=== PATIENT | female | born 1960 | race Caucasian/White ===

== ENCOUNTER 2023-04-28 00:03 | Emergency (ER) | payer BC ==
[2023-04-28] MEDS: Codeine/guaiFENesin 10-100 MG/5 ML Syrup 5 ML Cup PO ONE ×2 (00:39→02:07)
[2023-04-28 00:49] LABS: BASOPHILS ABSOLUTE AUTO 0.08 10^3/uL (0.00-0.10); BASOPHILS PERCENT AUTO 0.9 % (0.0-1.0); EOSINOPHILS ABSOLUTE AUTO 0.42 10^3/uL (0.10-0.30); EOSINOPHILS PERCENT AUTO 4.6 % (1.0-3.0); HEMATOCRIT 43.2 % (37.0-47.0); HEMOGLOBIN 14.6 g/dL (12.0-16.0); IMMATURE GRAN ABSOLUTE AUTO 0.01 10^3/uL (0.00-0.50); IMMATURE GRAN PERCENT AUTO 0.1 % (0.0-5.0); LYMPHOCYTES ABSOLUTE AUTO 1.28 10^3/uL (1.00-4.00); LYMPHOCYTES PERCENT AUTO 14.1 % (20.0-40.0); MEAN CORPUSCULAR HEMOGLOBIN 31.2 pg (27.0-31.0); MEAN CORPUSCULAR HGB CONC 33.8 g/dL (32.0-36.0); MEAN CORPUSCULAR VOLUME 92.3 fL (82.0-92.0); MONOCYTES ABSOLUTE AUTO 1.33 10^3/uL (0.10-0.80); MONOCYTES PERCENT AUTO 14.7 % (2.0-8.0); NEUTROPHILS ABSOLUTE AUTO 5.94 10^3/uL (2.50-7.00); NEUTROPHILS PERCENT AUTO 65.6 % (50.0-70.0); PLATELET COUNT,PLT 265 10^3/uL (150-400); RED BLOOD CELL COUNT 4.68 10^6/uL (3.80-5.50); RED CELL DISTRIBUTION WIDTH 12.6 % (11.5-14.5); WHITE BLOOD CELL COUNT,WBC 9.06 10^3/uL (5.00-10.00)
[2023-04-28] MEDS: Albuterol/Ipratropium 3.0-0.5 MG/3 ML Neb Soln NEB ONE ×2 (00:51→02:08)
[2023-04-28 01:08] LABS: ALBUMIN 3.85 g/dL (3.40-5.00); ANION GAP 16.5 mmol/L (5-15); BILIRUBIN TOTAL 0.5 mg/dL (0.2-1.0); CALCIUM 9.2 mg/dL (8.7-10.3); CARBON DIOXIDE,CO2 26.6 mmol/L (21.0-32.0); CREATININE 0.69 mg/dL (0.51-1.17); EST CRCL DRUG DOSING (CG) 75.09 mL/min; POTASSIUM,K 4.1 mmol/L (3.5-5.1); PROTEIN TOTAL,TP 8.3 g/dL (6.4-8.2)
[2023-04-28 01:18] LABS: INFLUENZA A NAA NEGATIVE (NEGATIVE); INFLUENZA B NAA NEGATIVE (NEGATIVE); RESPIRATORY SYNCYTIAL VIR NAA POSITIVE (NEGATIVE)
[2023-04-28 01:20] LABS: CORONAVIRUS COVID-19 NAA NEGATIVE (NEGATIVE)
[2023-04-28] MEDS: predniSONE 10 MG Tab PO ONE (02:06)
[2023-04-28] MEDS: predniSONE 20 MG Tab PO ONE (02:06)
== END 2023-04-28 02:10 | disposition home or self-care (01) ==
LOC: KA.ED 00:03
DX: J21.0 Acute bronchiolitis due to respiratory syncytial virus (principal); R05.1 Acute cough; G47.01 Insomnia due to medical condition; Z79.899 Other long term (current) drug therapy; Z88.5 Allergy status to narcotic agent; Z88.6 Allergy status to analgesic agent; Z88.7 Allergy status to serum and vaccine; Z88.8 Allergy status to other drugs, medicaments and biological substances; Z91.013 Allergy to seafood; Z88.0 Allergy status to penicillin
CPT/HCPCS: 0241U; 36415; 71046; 80053; 85025; 94640; 99284; A9270-GY; J7512; J7620-GY

== ENCOUNTER 2023-04-30 13:07 | Inpatient (IN) | payer BC ==
[2023-04-30 13:48] LABS: BASOPHILS ABSOLUTE AUTO 0.06 10^3/uL (0.00-0.10); BASOPHILS PERCENT AUTO 0.6 % (0.0-1.0); EOSINOPHILS ABSOLUTE AUTO 0.26 10^3/uL (0.10-0.30); EOSINOPHILS PERCENT AUTO 2.8 % (1.0-3.0); HEMATOCRIT 42.1 % (37.0-47.0); HEMOGLOBIN 13.9 g/dL (12.0-16.0); IMMATURE GRAN ABSOLUTE AUTO 0.02 10^3/uL (0.00-0.50); IMMATURE GRAN PERCENT AUTO 0.2 % (0.0-5.0); LYMPHOCYTES ABSOLUTE AUTO 1.85 10^3/uL (1.00-4.00); LYMPHOCYTES PERCENT AUTO 19.7 % (20.0-40.0); MEAN CORPUSCULAR HEMOGLOBIN 31.1 pg (27.0-31.0); MEAN CORPUSCULAR VOLUME 94.2 fL (82.0-92.0); MEAN PLATELET VOLUME 10.2 fL (7.4-10.4); MONOCYTES ABSOLUTE AUTO 0.94 10^3/uL (0.10-0.80); NEUTROPHILS ABSOLUTE AUTO 6.24 10^3/uL (2.50-7.00); NEUTROPHILS PERCENT AUTO 66.7 % (50.0-70.0); PLATELET COUNT,PLT 274 10^3/uL (150-400); RED BLOOD CELL COUNT 4.47 10^6/uL (3.80-5.50); RED CELL DISTRIBUTION WIDTH 12.9 % (11.5-14.5); WHITE BLOOD CELL COUNT,WBC 9.37 10^3/uL (5.00-10.00)
[2023-04-30] MEDS: Sodium Chloride 0.9% 1,000 ML IV ONE (13:50)
[2023-04-30 14:05] LABS: ALBUMIN 3.6 g/dL (3.40-5.00); ANION GAP 15.7 mmol/L (5-15); BILIRUBIN TOTAL 0.3 mg/dL (0.2-1.0); CALCIUM 8.9 mg/dL (8.7-10.3); CARBON DIOXIDE,CO2 26.1 mmol/L (21.0-32.0); CREATININE 0.67 mg/dL (0.51-1.17); EST CRCL DRUG DOSING (CG) 77.33 mL/min; POTASSIUM,K 3.8 mmol/L (3.5-5.1); PROTEIN TOTAL,TP 7.9 g/dL (6.4-8.2)
[2023-04-30] MEDS ORDERED: Ondansetron 4 MG/2 ML SDV IV PRN (17:04)
[2023-04-30] MEDS ORDERED: Sodium Chloride 0.9% 10 ML Syringe FLUSH PRN (17:04)
[2023-04-30] MEDS ORDERED: Acetaminophen 325 MG Tab PO PRN (17:04)
[2023-04-30] MEDS ORDERED: Polyethylene Glycol 3350 Powder 17 GM Packet PO PRN (17:04)
[2023-04-30] MEDS: cefTRIAXone 2 GM Vial IVPUSH ONE (17:50)
[2023-04-30] MEDS: Azithromycin 500 MG in Sodium Chloride 0.9% 250 ML IV ONE (17:50)
[2023-04-30] MEDS: cefTRIAXone 1 GM Vial IVPUSH SCH (17:56)
[2023-04-30] MEDS: Furosemide 40 MG/4 ML VIAL IVPUSH SCH (18:26)
[2023-04-30] MEDS: Enoxaparin 40 MG/0.4 ML Syringe SUBCUT SCH (18:26)
[2023-04-30] MEDS: Albuterol/Ipratropium 3.0-0.5 MG/3 ML Neb Soln NEB PRN (19:51)
[2023-04-30] MEDS: Melatonin 3 MG Tab PO PRN (22:38)
[2023-04-30] MEDS: Codeine/guaiFENesin 10-100 MG/5 ML Syrup 5 ML Cup PO PRN (22:38)
[2023-05-01 07:46] LABS: BASOPHILS ABSOLUTE AUTO 0.06 10^3/uL (0.00-0.10); BASOPHILS PERCENT AUTO 0.8 % (0.0-1.0); EOSINOPHILS ABSOLUTE AUTO 0.46 10^3/uL (0.10-0.30); EOSINOPHILS PERCENT AUTO 6.3 % (1.0-3.0); HEMATOCRIT 40.2 % (37.0-47.0); IMMATURE GRAN ABSOLUTE AUTO 0.01 10^3/uL (0.00-0.50); IMMATURE GRAN PERCENT AUTO 0.1 % (0.0-5.0); LYMPHOCYTES ABSOLUTE AUTO 1.98 10^3/uL (1.00-4.00); LYMPHOCYTES PERCENT AUTO 27.1 % (20.0-40.0); MEAN CORPUSCULAR HEMOGLOBIN 30.6 pg (27.0-31.0); MEAN CORPUSCULAR HGB CONC 32.3 g/dL (32.0-36.0); MEAN CORPUSCULAR VOLUME 94.6 fL (82.0-92.0); MEAN PLATELET VOLUME 10.3 fL (7.4-10.4); MONOCYTES ABSOLUTE AUTO 0.71 10^3/uL (0.10-0.80); MONOCYTES PERCENT AUTO 9.7 % (2.0-8.0); NEUTROPHILS ABSOLUTE AUTO 4.08 10^3/uL (2.50-7.00); PLATELET COUNT,PLT 263 10^3/uL (150-400); RED BLOOD CELL COUNT 4.25 10^6/uL (3.80-5.50); RED CELL DISTRIBUTION WIDTH 12.9 % (11.5-14.5)
[2023-05-01 08:13] LABS: ANION GAP 13.4 mmol/L (5-15); CALCIUM 8.8 mg/dL (8.7-10.3); CARBON DIOXIDE,CO2 27.3 mmol/L (21.0-32.0); CREATININE 0.74 mg/dL (0.51-1.17); EST CRCL DRUG DOSING (CG) 70.02 mL/min; MAGNESIUM 2.3 mg/dL (1.8-2.4); POTASSIUM,K 3.7 mmol/L (3.5-5.1)
[2023-05-01] MEDS ORDERED: Ondansetron 4 MG Tab.DIS PO PRN (17:49)
[2023-05-01] MEDS: Azithromycin 500 MG in Sodium Chloride 0.9% 250 ML IV SCH (20:50)
[2023-05-01] MEDS: cefTRIAXone 1 GM Vial IVPUSH SCH (20:51)
[2023-05-01] MEDS: guaiFENesin 600 MG Tab.ER PO SCH (22:02)
[2023-05-01] MEDS: methylPREDNISolone Sodium Succinate 40 MG/1 ML SDV IVPUSH ONE (23:09)
[2023-05-01] MEDS: Sodium Chloride 0.9% 50 ML IV SCH (23:10)
[2023-05-01] MEDS: Levofloxacin/Dextrose 5%-Water 750 MG in Premix Bag 1 BAG IV SCH (23:10)
[2023-05-02 07:34] LABS: BASOPHILS ABSOLUTE AUTO 0.02 10^3/uL (0.00-0.10); BASOPHILS PERCENT AUTO 0.3 % (0.0-1.0); HEMATOCRIT 41.5 % (37.0-47.0); HEMOGLOBIN 13.8 g/dL (12.0-16.0); IMMATURE GRAN ABSOLUTE AUTO 0.02 10^3/uL (0.00-0.50); IMMATURE GRAN PERCENT AUTO 0.3 % (0.0-5.0); LYMPHOCYTES ABSOLUTE AUTO 0.85 10^3/uL (1.00-4.00); LYMPHOCYTES PERCENT AUTO 10.8 % (20.0-40.0); MEAN CORPUSCULAR HEMOGLOBIN 30.9 pg (27.0-31.0); MEAN CORPUSCULAR HGB CONC 33.3 g/dL (32.0-36.0); MEAN CORPUSCULAR VOLUME 92.8 fL (82.0-92.0); MEAN PLATELET VOLUME 10.1 fL (7.4-10.4); MONOCYTES ABSOLUTE AUTO 0.06 10^3/uL (0.10-0.80); MONOCYTES PERCENT AUTO 0.8 % (2.0-8.0); NEUTROPHILS ABSOLUTE AUTO 6.89 10^3/uL (2.50-7.00); NEUTROPHILS PERCENT AUTO 87.8 % (50.0-70.0); PLATELET COUNT,PLT 292 10^3/uL (150-400); RED BLOOD CELL COUNT 4.47 10^6/uL (3.80-5.50); RED CELL DISTRIBUTION WIDTH 12.6 % (11.5-14.5); WHITE BLOOD CELL COUNT,WBC 7.84 10^3/uL (5.00-10.00)
[2023-05-02 07:51] LABS: HEMOGLOBIN A1C 6.7 % (4.3-5.7)
[2023-05-02 08:03] LABS: ANION GAP 14.6 mmol/L (5-15); CALCIUM 9.1 mg/dL (8.7-10.3); CARBON DIOXIDE,CO2 26.5 mmol/L (21.0-32.0); CREATININE 0.59 mg/dL (0.51-1.17); EST CRCL DRUG DOSING (CG) 87.82 mL/min; MAGNESIUM 2.2 mg/dL (1.8-2.4); POTASSIUM,K 4.1 mmol/L (3.5-5.1); TSH ULTRASENSITIVE 0.34 uIU/mL (0.340-4.820)
[2023-05-03] MEDS: Loratadine 10 MG Tab PO SCH (12:15)
[2023-05-03] MEDS: Fluticasone NASAL Spray 16 GM Bottle NASBOTH SCH (12:15)
[2023-05-03] MEDS: Furosemide 40 MG/4 ML VIAL IVPUSH ONE (12:58)
[2023-05-04] MEDS: methylPREDNISolone Sodium Succinate 40 MG/1 ML SDV IV SCH (11:22)
[2023-05-05] MEDS: Furosemide 40 MG/4 ML VIAL IVPUSH ONE (15:53)
== END 2023-05-05 17:35 | DRG 138 ==
LOC: KA.ED 13:07 → KA.MS 16:48
PROVIDERS: ADMIT Family Medicine; ATTEND Internal Medicine
DX: J12.1 Respiratory syncytial virus pneumonia (principal); J96.01 Acute respiratory failure with hypoxia; E66.9 Obesity, unspecified; J21.0 Acute bronchiolitis due to respiratory syncytial virus; R91.8 Other nonspecific abnormal finding of lung field; J45.909 Unspecified asthma, uncomplicated; E03.9 Hypothyroidism, unspecified; Z88.0 Allergy status to penicillin; Z91.013 Allergy to seafood; Z88.8 Allergy status to other drugs, medicaments and biological substances; Z86.16 Personal history of COVID-19; Z68.32 Body mass index [BMI] 32.0-32.9, adult; Z79.890 Hormone replacement therapy; Z90.89 Acquired absence of other organs; Z99.81 Dependence on supplemental oxygen
CPT/HCPCS: 36415; 71045; 71046; 71250; 80048; 80053; 80061; 83036; 83605; 83735; 84145; 84443; 85025; 87040; 94640; 97162-GP; 99284; 99285; A9270-GY; J0456; J0696; J1650; J1940; J1956; J2920; J3490; J7030; J7050; J7620-GY; Q3014

== ENCOUNTER 2024-08-02 15:18 | Observation (INO) | payer MEDICARE ==
[2024-08-02] MEDS ORDERED: Acetaminophen 325 MG Tab PO PRN (16:17)
[2024-08-02] MEDS ORDERED: Ondansetron 4 MG Tab.DIS PO PRN (16:17)
[2024-08-02] MEDS ORDERED: Albuterol/Ipratropium 3.0-0.5 MG/3 ML Neb Soln NEB PRN (16:17)
[2024-08-02] MEDS ORDERED: [UNRECOGNIZED DRUG - OTHER] PO PRN (16:23)
[2024-08-02] MEDS ORDERED: DEXTROMETHORPHAN PO PRN (16:23)
[2024-08-02] MEDS ORDERED: PROMETHAZINE PO PRN (16:23)
[2024-08-02] MEDS ORDERED: guaiFENesin/Dextromethorphan 100-10 MG/5 ML Soln 5 ML Cup PO PRN (17:01)
[2024-08-02 17:10] LABS: HEMATOCRIT 41.8 % (37.0-47.0); HEMOGLOBIN 14.2 g/dL (12.0-16.0); MEAN CORPUSCULAR HEMOGLOBIN 31.3 pg (27.0-31.0); MEAN CORPUSCULAR VOLUME 92.1 fL (82.0-92.0); MEAN PLATELET VOLUME 10.4 fL (7.4-10.4); PLATELET COUNT,PLT 294 10^3/uL (150-400); RED BLOOD CELL COUNT 4.54 10^6/uL (3.80-5.50); RED CELL DISTRIBUTION WIDTH 12.6 % (11.5-14.5); WHITE BLOOD CELL COUNT,WBC 8.96 10^3/uL (5.00-10.00)
[2024-08-02] MEDS: Albuterol/Ipratropium 3.0-0.5 MG/3 ML Neb Soln NEB SCH (17:12)
[2024-08-02] MEDS: Loratadine 10 MG Tab PO SCH (17:12)
[2024-08-02] MEDS: cefTRIAXone 1 GM Vial IVPUSH SCH (17:13)
[2024-08-02] MEDS: Azithromycin 500 MG in Sodium Chloride 0.9% 250 ML IV SCH (17:13)
[2024-08-02 17:25] LABS: ALBUMIN 3.64 g/dL (3.40-5.00); BILIRUBIN TOTAL 0.4 mg/dL (0.2-1.0); CALCIUM 9.4 mg/dL (8.7-10.3); CARBON DIOXIDE,CO2 23.4 mmol/L (21.0-32.0); CREATININE 0.55 mg/dL (0.51-1.17); EST CRCL DRUG DOSING (CG) 91.76 mL/min; POTASSIUM,K 4.4 mmol/L (3.5-5.1); PROTEIN TOTAL,TP 8.5 g/dL (6.4-8.2)
[2024-08-02] MEDS: Levofloxacin/Dextrose 5%-Water 750 MG in Premix Bag 1 BAG IV SCH (17:35)
[2024-08-02] MEDS: Sodium Chloride 0.9% 100 ML ONE (17:36)
[2024-08-02] MEDS: Sodium Chloride 0.9% 100 ML IV SCH (17:42)
[2024-08-03 07:05] LABS: BASOPHILS ABSOLUTE AUTO 0.03 10^3/uL (0.00-0.10); BASOPHILS PERCENT AUTO 0.3 % (0.0-1.0); EOSINOPHILS ABSOLUTE AUTO 0.23 10^3/uL (0.10-0.30); EOSINOPHILS PERCENT AUTO 2.6 % (1.0-3.0); HEMATOCRIT 36.5 % (37.0-47.0); HEMOGLOBIN 12.1 g/dL (12.0-16.0); IMMATURE GRAN ABSOLUTE AUTO 0.01 10^3/uL (0.00-0.04); IMMATURE GRAN PERCENT AUTO 0.1 % (0.0-0.4); LYMPHOCYTES ABSOLUTE AUTO 3.01 10^3/uL (1.00-4.00); MEAN CORPUSCULAR HGB CONC 33.2 g/dL (32.0-36.0); MEAN CORPUSCULAR VOLUME 93.6 fL (82.0-92.0); MEAN PLATELET VOLUME 10.1 fL (7.4-10.4); MONOCYTES ABSOLUTE AUTO 1.02 10^3/uL (0.10-0.80); MONOCYTES PERCENT AUTO 11.5 % (2.0-8.0); NEUTROPHILS ABSOLUTE AUTO 4.56 10^3/uL (2.50-7.00); NEUTROPHILS PERCENT AUTO 51.5 % (50.0-70.0); PLATELET COUNT,PLT 256 10^3/uL (150-400); RED CELL DISTRIBUTION WIDTH 12.9 % (11.5-14.5); WHITE BLOOD CELL COUNT,WBC 8.86 10^3/uL (5.00-10.00)
[2024-08-03 07:24] LABS: ALBUMIN 2.94 g/dL (3.40-5.00); BILIRUBIN TOTAL 0.3 mg/dL (0.2-1.0); CALCIUM 8.8 mg/dL (8.7-10.3); CARBON DIOXIDE,CO2 27.2 mmol/L (21.0-32.0); CREATININE 0.71 mg/dL (0.51-1.17); EST CRCL DRUG DOSING (CG) 71.08 mL/min; PROTEIN TOTAL,TP 6.8 g/dL (6.4-8.2)
[2024-08-03 07:27] LABS: ANION GAP 12.1 mmol/L (5-15); POTASSIUM,K 3.3 mmol/L (3.5-5.1)
[2024-08-03] MEDS: methylPREDNISolone Sodium Succinate 40 MG/1 ML SDV IVPUSH SCH (08:41)
[2024-08-03] MEDS: ALPRAZolam 0.25 MG Tab PO PRN (08:41)
[2024-08-03] MEDS: Potassium Chloride 10 MEQ Tab.ER PO ONE (11:01)
== END 2024-08-03 12:42 | disposition home or self-care (01) ==
LOC: KA.MS 15:18
PROVIDERS: ADMIT Internal Medicine; ATTEND Internal Medicine
DX: J45.21 Mild intermittent asthma with (acute) exacerbation (principal); J96.01 Acute respiratory failure with hypoxia; J40 Bronchitis, not specified as acute or chronic; E11.9 Type 2 diabetes mellitus without complications; E78.00 Pure hypercholesterolemia, unspecified; Z79.899 Other long term (current) drug therapy; Z88.0 Allergy status to penicillin; Z88.8 Allergy status to other drugs, medicaments and biological substances; Z88.6 Allergy status to analgesic agent; Z91.040 Latex allergy status; Z91.013 Allergy to seafood
CPT/HCPCS: 36415; 71046; 80053; 85025; 85027; 94640; 96365; 96375; A9270-GY; G0378; J0456; J0696; J2919; Q3014

== ENCOUNTER 2025-03-25 12:02 | Emergency (ER) | payer MEDICARE ==
[2025-03-25] MEDS ORDERED: Sodium Chloride 0.9% 10 ML Syringe FLUSH PRN (12:17)
[2025-03-25 12:40] LABS: BASOPHILS ABSOLUTE AUTO 0.05 10^3/uL (0.00-0.10); BASOPHILS PERCENT AUTO 0.6 % (0.0-1.0); EOSINOPHILS ABSOLUTE AUTO 0.02 10^3/uL (0.10-0.30); EOSINOPHILS PERCENT AUTO 0.2 % (1.0-3.0); IMMATURE GRAN ABSOLUTE AUTO 0.01 10^3/uL (0.00-0.04); IMMATURE GRAN PERCENT AUTO 0.1 % (0.0-0.4); LYMPHOCYTES ABSOLUTE AUTO 1.51 10^3/uL (1.00-4.00); LYMPHOCYTES PERCENT AUTO 17.6 % (20.0-40.0); MEAN PLATELET VOLUME 10.5 fL (7.4-10.4); MONOCYTES ABSOLUTE AUTO 0.69 10^3/uL (0.10-0.80); MONOCYTES PERCENT AUTO 8.1 % (2.0-8.0); NEUTROPHILS ABSOLUTE AUTO 6.28 10^3/uL (2.50-7.00); NEUTROPHILS PERCENT AUTO 73.4 % (50.0-70.0); PLATELET COUNT,PLT 183 10^3/uL (150-400); RED BLOOD CELL COUNT 4.78 10^6/uL (3.80-5.50); RED CELL DISTRIBUTION WIDTH 12.3 % (11.5-14.5); WHITE BLOOD CELL COUNT,WBC 8.56 10^3/uL (5.00-10.00)
[2025-03-25 13:03] LABS: ALANINE AMINOTRANSFERASE,ALT 35 U/L (14-63); ASPARTATE AMNIOTRANSFERASE,AST 19 U/L (15-37); BILIRUBIN TOTAL 0.4 mg/dL (0.2-1.0); BLOOD UREA NITROGEN,BUN 11 mg/dL (7-18); CARBON DIOXIDE,CO2 26.5 mmol/L (21.0-32.0); CHLORIDE,CL 105 mmol/L (98-107); CREATININE 0.61 mg/dL (0.51-1.17); EST CRCL DRUG DOSING (CG) 82.74 mL/min; GLUCOSE RANDOM 119 mg/dL (70-140); POTASSIUM,K 3.9 mmol/L (3.5-5.1); PROTEIN TOTAL,TP 7.7 g/dL (6.4-8.2); SODIUM,NA 141 mmol/L (136-145)
[2025-03-25 13:04] LABS: ESTIMATED GFR 99 mL/min (>=60)
[2025-03-25 13:05] LABS: B-TYPE NATRIURETIC PEPTIDE,BNP 31 pg/mL (0-100)
[2025-03-25 13:18] LABS: INFLUENZA A NAA NEGATIVE (NEGATIVE); INFLUENZA B NAA NEGATIVE (NEGATIVE); RESPIRATORY SYNCYTIAL VIR NAA NEGATIVE (NEGATIVE)
[2025-03-25 13:19] LABS: CORONAVIRUS COVID-19 NAA NEGATIVE (NEGATIVE)
== END 2025-03-25 13:57 | disposition home or self-care (01) ==
LOC: KA.ED 12:02
DX: M62.89 Other specified disorders of muscle (principal); R07.89 Other chest pain; F41.9 Anxiety disorder, unspecified; R52 Pain, unspecified; E78.00 Pure hypercholesterolemia, unspecified; E11.9 Type 2 diabetes mellitus without complications; J45.909 Unspecified asthma, uncomplicated; E03.9 Hypothyroidism, unspecified; Z88.6 Allergy status to analgesic agent; Z88.8 Allergy status to other drugs, medicaments and biological substances; Z88.0 Allergy status to penicillin; Z88.1 Allergy status to other antibiotic agents; Z91.013 Allergy to seafood; Z88.5 Allergy status to narcotic agent; Z88.7 Allergy status to serum and vaccine; Z91.040 Latex allergy status; Z79.899 Other long term (current) drug therapy
CPT/HCPCS: 36415; 71046; 80053; 83880; 84484; 85025; 85379; 86140; 87637; 93010; 99284; 99285